=== PATIENT | female | born 1970 | race Caucasian/White ===

== ENCOUNTER 2019-04-13 11:35 | Emergency (ER) | payer OTHER, SELFPAY ==
[2019-04-13 11:49] VITALS: BP 99/52; PULSE 86; RESP 16; TEMP 37; O2SAT 100
--- NOTE | 2019-04-13 12:11 | ED.URI ---
HPI - URI/Sore Throat General Chief Complaint: Upper Respiratory Infection Stated Complaint: Cold/Cough Time Seen by Provider: 04/13/19 12:12 Source: patient and RN notes reviewed Mode of arrival: ambulatory Limitations: no limitations History of Present Illness HPI Narrative: 48-year-old female presents with concern for nasal congestion, drainage, postnasal drainage, dry cough for 1 month. Reports 4 days ago she began to get frontal headache, sinus tenderness, dizziness. Reports taking multisymptom cold medicine without relief. MD elicited complaint: cough Related Data Home Medications Medication Instructions Recorded Confirmed glucagon HCl [Glucagon (HCl) 1 mg SUBCUT ONCE 04/13/19 04/13/19 Emergency Kit] insulin lispro [Humalog U-100 CONTINUOUS SUBCUTANEOUS INFUSION 04/13/19 Insulin] irbesartan 75 mg PO DAILY 04/13/19 04/13/19 metformin 500 mg PO BID 04/13/19 04/13/19 Allergies Allergy/AdvReac Type Severity Reaction Status Date / Time Penicillins Allergy Hives Verified 04/13/19 12:01 Review of Systems Review of Systems: Narrative: CONSTITUTIONAL: Denies malaise, chills, sweats, or fever. EYES: Denies visual changes, redness, or discharge. ENT: Reports rhinorrhea, congestion, sinus pain. Denies otalgia and sore throat. CARDIOVASCULAR: Denies chest pain, palpitations, or edema. RESPIRATORY: Reports cough. Denies dyspnea. GASTROINTESTINAL: Denies abdominal pain, nausea, vomiting, diarrhea SKIN: Denies rash or itching. MUSCULOSKELETAL: Denies myalgia. NEUROLOGIC: Reports headache. All systems reviewed & are unremarkable except as noted in HPI and below PMFSH Comments At time of signature, agree with nursing past medical, surgical, social and family history. There is no relevant family history pertinent to the presenting complaint Exam Narrative: Exam Narrative: GENERAL: Well-appearing, well-nourished, and in no acute distress. HEAD: Normocephalic EYES: PERRLA, conjunctivae clear ENT: Nares clear, turbinates edematous and erythematous, sinus tenderness. Mucous membranes moist. TM pearly hayes with dull light reflex bilaterally; no tragal tenderness. Oropharynx not erythematous without lesions. Tonsils not enlarged and without exudate, no drooling, no hoarseness, no trismus. NECK: Supple. No lymphadenopathy CHEST: Clear to auscultation, breath sounds equal. No wheezing, rhonchi, rales, or stridor. No respiratory distress, speaks in full sentences. HEART: Regular rate and rhythm. No murmur heard. Normal peripheral pulses. SKIN: Warm, dry, no rash. NEURO: Alert and oriented x3. No focal deficit PSYCH: Normal mood and affect Course Course Emergency Course: Patient is aware of diagnosis, understands and agrees to treatment plan. Anticipatory guidance given. Patient agrees to follow-up as directed and is aware of reasons to seek care at the emergency department. Portions of this record may have been created with voice recognition software Vital Signs Vital signs: Vital Signs Temperature 98.6 F 04/13/19 11:49 Pulse Rate 86 04/13/19 11:49 Respiratory Rate 16 04/13/19 11:49 Blood Pressure 99/52 L 04/13/19 11:49 Pulse Oximetry 100 04/13/19 11:49 Temperature 98.6 F 04/13/19 11:49 Pulse Rate 86 04/13/19 11:49 Respiratory Rate 16 04/13/19 11:49 Blood Pressure 99/52 L 04/13/19 11:49 Pulse Oximetry 100 04/13/19 11:49 Reviewed. Mean arterial pressure 68 MDM - URI/Sore Throat MDM Narrative Medical decision making narrative: Differential diagnosis considered: Strep pharyngitis, allergic rhinitis, upper respiratory tract infection, sinusitis, rhinosinusitis, nasopharyngitis. viral pharyngitis, otitis media, otitis externa, pneumonia, bronchitis, viral cough syndrome, viral syndrome, and influenza. Exam findings show no acute concerns or changes; patient is non-toxic appearing and is in no distress. Patient is appropriate for outpatient treatment and follow-up. Patient has no history of
== END 2019-04-13 12:30 | disposition home or self-care (01) ==
PROVIDERS: Emergency Provider Nurse Practitioner
DX: J01.90 Acute sinusitis, unspecified (principal); I69.354 Hemiplegia and hemiparesis following cerebral infarction affecting left non-dominant side; E11.9 Type 2 diabetes mellitus without complications
CPT/HCPCS: 99203; G0463